=== PATIENT | female | born 1990 | race Caucasian/White ===

== ENCOUNTER 2019-01-07 09:37 | Outpatient (CLI) | payer MEDICAID ==
[2019-01-07 09:50] VITALS: BP 115/67
[2019-01-07 10:20] VITALS: BP 116/64
[2019-01-07 10:50] VITALS: BP 122/70
[2019-01-07 11:20] VITALS: BP 122/62
[2019-01-07 11:31] LABS: BILIRUBIN,URINE NEGATIVE (NEGATIVE); CLARITY,URINE CLEAR; COLOR,URINE YELLOW; GLUCOSE, URINE (UA) NEGATIVE (NEGATIVE); KETONES,URINE NEGATIVE (NEGATIVE); LEUKOCYTE ESTERASE ,URINE 1+ (NEGATIVE); NITRITE,URINE NEGATIVE (NEGATIVE); PH,URINE 7 (5-9); PROTEIN,URINE NEGATIVE (NEGATIVE); UROBILINOGEN,URINE NORMAL (NORMAL)
[2019-01-07 11:39] LABS: BACTERIA,URINE FEW /HPF
[2019-01-07 11:50] VITALS: BP 127/67
--- NOTE | 2019-01-08 09:49 | Physician Query-Final Dx ---
NATACHA MURO 01/08/19 0949: Clinic Account Progress/Dx Physician Query: Please give diagnosis Please include weeks gestation Date of Service Jan 07, 2019 at 09:37 RAMON SALVADOR DO 01/13/19 0704: Clinic Account Progress/Dx Physician Query: Please give diagnosis Intrauterine at 37 weeks 2. Pelvic Pain 3. Nausea DIAGNOSIS: Diagnosis Intrauterine at 37 weeks 2. Pelvic Pain 3. Nausea NATACHA MURO Jan 08, 2019 09:49 RAMON SALVADOR DO Jan 13, 2019 07:04
== END 2019-01-07 12:30 | disposition home or self-care (01) ==
LOC: WSo 09:37 → LDRP 09:38 → WSo 12:30
PROVIDERS: ATTEND Obstetrics & Gynecology
DX: O26.893 Other specified pregnancy related conditions, third trimester (principal); R10.2 Pelvic and perineal pain; R11.0 Nausea; Z3A.37 37 weeks gestation of pregnancy
CPT/HCPCS: 81000; 87088; 99213

== ENCOUNTER 2019-01-21 05:31 | Inpatient (IN) | payer MEDICAID ==
[~2019-01-21] VITALS: Ht 162.6 cm; Wt 103.3 kg
[2019-01-21] VITALS (58 sets, daily range): BP systolic 95–138; BP diastolic 53–91
--- NOTE | 2019-01-21 05:40 | NUR ---
SABRINA BATEMAN presented to unit via ambulation from home/ED, accompanied by friend, for INDUCTION. SABRINA BATEMAN weighed, gowned, voided, and to bed. EFHM and TOCO applied, VS taken. SABRINA BATEMAN oriented to bed controls, call light, TV, heat, and A/C controls.
[2019-01-21] MEDS ORDERED: MINERAL OIL CONCENTRATE 99.9% 15 ML UDC TOP PRN (06:00)
[2019-01-21] MEDS ORDERED: PREN-142 PO (06:09)
[2019-01-21 06:14] LABS: BASOPHILS % (AUTO) 0 % (0-10); EOSINOPHILS # (AUTO) 0.1 10^3/uL (0.0-0.3); EOSINOPHILS % (AUTO) 1 % (0-10); HEMATOCRIT 32 % (35-52); HEMOGLOBIN 10.5 G/DL (11.5-16.0); LYMPHOCYTES # (AUTO) 2.3 X 10^3 (1.0-4.0); LYMPHOCYTES % (AUTO) 26 % (12-44); MEAN CORPUSCULAR HEMOGLOBIN 27 PG (25-34); MEAN CORPUSCULAR HGB CONC 33 G/DL (32-36); MEAN CORPUSCULAR VOLUME 81 FL (80-99); MEAN PLATELET VOLUME 9.3 FL (7.4-10.4); MONOCYTES % (AUTO) 11 % (0-12); NEUTROPHILS # (AUTO) 5.7 X 10^3 (1.8-7.8); NEUTROPHILS % (AUTO) 62 % (42-75); PLATELET COUNT 307 10^3/uL (130-400); RED CELL DISTRIBUTION WIDTH 14.9 % (10.0-14.5); WHITE BLOOD COUNT 9.1 10^3/uL (4.3-11.0)
[2019-01-21] MEDS ORDERED: OXYTOCIN/NORMAL SALINE 500 ML IV ONE (07:26)
[2019-01-21] MEDS ORDERED: OXYTOCIN/NORMAL SALINE 500 ML IV SCH ×2 (07:27→21:26)
[2019-01-21] MEDS: D5 LR IV SOLUTION 1,000 ML IV SCH ×2 (07:53→15:56)
[2019-01-21] MEDS: CATHETER FLUSH 10 ML SYR IV SCH ×2 (08:12→14:51)
[2019-01-21] MEDS: BUTORPHANOL INJ 2 MG/ML (STADOL) VIAL IV PRN ×3 (12:18→20:22)
[2019-01-21] MEDS ORDERED: ONDANSETRON 4 MG/2 ML (SDV) Z0FRAN ONE (20:23)
[2019-01-21] MEDS ORDERED: LIDOCAINE/EPI 2% 1:200,00 (XYLOCAINE) 10 ML VIAL ONE (20:59)
[2019-01-21] MEDS ORDERED: NALOXONE 0.4 MG/ML 1 ML (NARCAN) VIAL ONE (21:03)
--- NOTE | 2019-01-21 21:23 | History & Physical-OB ---
OB - Chief Complaint & HPI Date/Time Date of Admission: Date of Admission: Jan 21, 2019 at 05:31 Date seen by a Provider: Jan 21, 2019 Time Seen by a Provider: 06:45 Chief Complaint/History OB-Reason for Admission/Chief: Induction of Labor Expected Date of Delivery: Jan 28, 2019 Gestational Age in Weeks: 39 Admission Nurse Assessment Rev: Yes Allergies and Home Medications Allergies Coded Allergies: No Known Drug Allergies (Unverified , 01/07/19) Home Medications Vit No.124/Iron/FA 1 Each Tablet, 1 EACH PO DAILY, (Reported) Patient Home Medication List Home Medication List Reviewed: Yes OB - History Hx of Present Care: Yes Ultrasounds: Normal mid trimester US Obstetrical Complications: None Medical Complications: None Information Induced Hypertension: No Maternal Gestational Diabetes: No Hemorrhage: No Delivery History Adverse Rxn to Tranfusion: No Patient Past Medical History None Social History/Family History HIV/AIDS: No Recent Infectious Disease Expo: No Alcohol Use: Denies Use Recreational Drug Use: No Immunizations Hepatitis A: No Hepatitis B: No OB - Admission Exam Physical Exam Vitals: Vital Signs 01/21/19 01/21/19 01/21/19 19:00 19:30 20:15 Temp 35.8 Pulse 72 Resp 18 B/P (MAP) 120/73 (89) Pulse Ox 100 O2 Delivery Room Air HEENT: NCAT Heart: Rhythm Normal Lungs: Clear Abdomen: Gravid Extremities: Normal Reflexes: Normal Cervical Dilatation: 2cm Effacement: 25% Station: Ballotable Membranes: Intact Heart Rate: 130's Accelerations: Accelerations Present Decelerations: No Decelerations Broke Worker Variability: Average (6-25) Contractions on Admission: None Solorzano Scoring Tool (Modified) Dilation (cm): 1-2cm (1) Effacement (%): 31-51% (1) Descent/Station: -3 (0) Cervix Consistency: Firm (0) Cervix Position: Posterior (0) Add 1 point for: Each previous vaginal delivery (1) Labs Laboratory Tests Test 01/21/19 06:00 Range/Units White Blood Count 9.1 4.3-11.0 10^3/uL Red Blood Count 3.93 L 4.35-5.85 10^6/uL Hemoglobin 10.5 L 11.5-16.0 G/DL Hematocrit 32 L 35-52 % Mean Corpuscular Volume 81 80-99 FL Mean Corpuscular Hemoglobin 27 25-34 PG Mean Corpuscular Hemoglobin Concent 33 32-36 G/DL Red Cell Distribution Width 14.9 H 10.0-14.5 % Platelet Count 307 130-400 10^3/uL Mean Platelet Volume 9.3 7.4-10.4 FL Neutrophils (%) (Auto) 62 42-75 % Lymphocytes (%) (Auto) 26 12-44 % Monocytes (%) (Auto) 11 0-12 % Eosinophils (%) (Auto) 1 0-10 % Basophils (%) (Auto) 0 0-10 % Neutrophils # (Auto) 5.7 1.8-7.8 X 10^3 Lymphocytes # (Auto) 2.3 1.0-4.0 X 10^3 Monocytes # (Auto) 1.0 0.0-1.0 X 10^3 Eosinophils # (Auto) 0.1 0.0-0.3 10^3/uL Basophils # (Auto) 0.0 0.0-0.1 10^3/uL OB - Assessment/Plan/Diagnosis Assessment Assessment: induction of labor Admission Dx Intrauterine at 39 weeks Admission Status: Inpatient Order (span 2 midnights) Reason for Inpatient Admission: Pitocin Induction of Labor Plan Induction Method: per Pitocin Protocol RAMON SALVADOR DO Jan 21, 2019 21:23
--- NOTE | 2019-01-21 21:26 | OB Labor & Delivery Record ---
Vag Delivery Note Vag Delivery Note Date of Delivery: 01/21/19 Preoperative Diagnosis: Francine Howe is a (28 /Para / ,Gestational Age (wks)39with [] Postoperative Diagnosis: Same Surgeon: RAMON SALVADOR Cadence Specialists: [None] Anesthesia: [None] Delivery Type: [Normal Spontaneous Vaginal Delivery] Findings: [] Viable [female] , apgars [], weight [] Lacerations:Superficial right labial, hemostatic, not repaired Intact placenta with 3 vessel cord. No nuchal cord, body cord or shoulder dystocia Cytotec 800 mcg placed for hemorrhage prophylaxis Estimated Blood Loss: [300] ml Complications: None Condition: Stable Description of Procedure: The patient is a 28 year old female who presented [for Pitocin Induction of Labor]. She was admitted and informed consent was obtained. She progressed to complete dilatation and began to push. She was then set up for delivery. The 's head was delivered atraumatically in the [MARCELLO] position. The shoulders and remainder of the 's body were then delivered without difficulty. Upon delivery, the head was held below the l evel of the perineum and the mouth and nares were bulb suctioned. The cord was doubly clamped and cut and the infant was handed off to the pediatric staff. Cord blood was obtained. An intact placenta with 3-vessel cord delivered via Jennifer and there was found to be minimal bleeding.~ Vigorous fundal massage was performed and the fundus was found to be firm. IV oxytocin was given. Examination of the vagina and perineum revealed a [superficial right labial laceration, hemostatic, not repaired]. Following the repair, sponge, instrument and needle counts were correct. Mom and baby were both in stable condition in the labor suite. Vitals - Labs Vital Signs - I&O Vital Signs Date Time Temp Pulse Resp B/P (MAP) Pulse Ox O2 Delivery O2 Flow Rate FiO2 01/21/19 20:15 72 18 120/73 (89) Room Air 01/21/19 20:00 71 18 121/71 (88) Room Air 01/21/19 19:45 87 18 118/73 (88) Room Air 01/21/19 19:30 35.8 76 18 114/67 (83) Room Air 01/21/19 19:15 82 18 123/74 (90) Room Air 01/21/19 19:00 74 18 123/74 (90) 100 Room Air 01/21/19 18:45 75 117/70 (86) Room Air 01/21/19 18:30 71 120/68 (85) Room Air 01/21/19 18:15 90 121/71 (88) Room Air 01/21/19 18:00 35.5 69 18 119/72 (88) Room Air 01/21/19 17:45 77 119/70 (86) Room Air 01/21/19 17:30 77 119/70 (86) Room Air 01/21/19 17:15 72 105/55 (72) Room Air 01/21/19 17:00 73 102/58 (73) Room Air 01/21/19 16:45 72 99/57 (71) Room Air 01/21/19 16:30 80 115/65 (82) Room Air 01/21/19 16:15 79 115/65 (82) Room Air 01/21/19 16:00 36.0 79 16 113/63 (80) 99 Room Air 01/21/19 15:45 77 102/61 (75) Room Air 01/21/19 15:30 77 108/59 (75) Room Air 01/21/19 15:15 70 95/55 (68) 01/21/19 15:00 81 128/68 (88) Room Air 01/21/19 14:45 81 107/66 (80) Room Air 01/21/19 14:30 75 104/64 (77) Room Air 01/21/19 14:15 80 105/62 (76) Room Air 01/21/19 14:00 36.4 70 16 107/64 (78) Room Air 01/21/19 13:45 84 111/57 (75) Room Air 01/21/19 13:30 81 100/57 (71) Room Air 01/21/19 13:15 84 106/57 (73) Room Air 01/21/19 13:00 72 104/56 (72) Room Air 01/21/19 12:45 86 104/63 (77) Room Air 01/21/19 12:30 86 106/66 (79) Room Air 01/21/19 12:15 85 117/69 (85) Room Air 01/21/19 12:00 35.9 86 18 120/84 (96) 99 Room Air 01/21/19 11:45 86 124/91 (102) Room Air 01/21/19 11:30 85 114/65 (81) Room Air 01/21/19 11:15 83 109/62 (78) Room Air 01/21/19 11:00 86 114/68 (83) 01/21/19 10:45 85 112/59 (76) Room Air 01/21/19 10:30 35.9 72 120/59 (79) Room Air 01/21/19 10:15 89 116/62 (80) Room Air 01/21/19 10:00 76 16 130/53 (78) Room Air 01/21/19 09:45 82 16 110/67 (81) Room Air 01/21/19 09:30 83 103/63 (76) Room Air 01/21/19 09:15 83 103/63 (76) Room Air 01/21/19 09:00 96 16 118/70 (86) Room Air 01/21/19 08:45 85 18 120/71 (87) Room Air 01/21/19 08:30 94 18 126/80 (95) 97 Room Air 01/21/19 08:15 102 18 130/62 (84) 97 Room Air 01/21/19 08:00 36.4 94 18 123/82 (96) 98 Room Air Labs Laboratory Tests 01/21/19 06:00: White Blood Count 9.1, Red Blood Count 3.93L, Hemoglobin 10.5L, Hematocrit 32L, Mean Corpuscular Volume 81, Mean Corpuscular Hemoglobin 27, Mean Corpuscular Hemoglobin Concent 33, Red Cell Distribution Width 14.9H, Platelet Count 307, Mean Platelet Volume 9.3, Neutrophils (%) (Auto) 62, Lymphocytes (%) (Auto) 26, Monocytes (%) (Auto) 11, Eosinophils (%) (Auto) 1, Basophils (%) (Auto) 0, Neutrophils # (Auto) 5.7, Lymphocytes # (Auto) 2.3, Monocytes # (Auto) 1.0, Eosinophils # (Auto) 0.1, Basophils # (Auto) 0.0 RAMON SALVADOR DO Jan 21, 2019 21:26
[2019-01-21] MEDS ORDERED: MEASLES,MUMPS,RUBELLA 1 EA INJ SQ ONE (21:30)
[2019-01-21] MEDS ORDERED: DIBUCAINE (NUPERCAINAL) 1% OINT 30 GM TOP PRN (21:30)
[2019-01-21] MEDS ORDERED: WITCH HAZEL(TUCKS) 40 EA JAR TOP PRN (21:30)
[2019-01-21] MEDS ORDERED: TETANUS,DIPTH,PERTUSS P/F (BOOSTRIX) 0.5 ML VIAL IM ONE (21:30)
[2019-01-21] MEDS ORDERED: BENZOCAINE/MENTHOL (DERMOPLAST) 56 ML CAN TP PRN (21:30)
[2019-01-21] MEDS ORDERED: CATHETER FLUSH 10 ML SYR IV SCH (22:00)
--- NOTE | 2019-01-21 22:25 | NUR ---
Pt assisted standby to bathroom postrecovery period, pericare pads changed, first void since delivery, Pt to wc and transferred to pp unit room 313. Oriented to call system and surroundings, denies needs. will cont to monitor.
[2019-01-21] MEDS: IBUPROFEN 800 MG (MOTRIN) TAB PO SCH (22:33)
[2019-01-21] MEDS ORDERED: ONDANSETRON 4 MG/2 ML (SDV) Z0FRAN IVP ONE (22:45)
[2019-01-22 00:46] VITALS: BP 105/65
[2019-01-22] MEDS: ACETAMINOPHEN 500 MG TAB (TYLENOL) PO SCH ×3 (03:07→17:33)
[2019-01-22 04:16] VITALS: BP 93/61
[2019-01-22] MEDS: IBUPROFEN 800 MG (MOTRIN) TAB PO SCH ×3 (04:16→21:08)
[2019-01-22 05:41] LABS: BASOPHILS % (AUTO) 0 % (0-10); EOSINOPHILS % (AUTO) 0 % (0-10); HEMATOCRIT 30 % (35-52); HEMOGLOBIN 9.9 G/DL (11.5-16.0); LYMPHOCYTES # (AUTO) 1.6 X 10^3 (1.0-4.0); LYMPHOCYTES % (AUTO) 12 % (12-44); MEAN CORPUSCULAR HEMOGLOBIN 27 PG (25-34); MEAN CORPUSCULAR HGB CONC 33 G/DL (32-36); MEAN CORPUSCULAR VOLUME 82 FL (80-99); MEAN PLATELET VOLUME 9.3 FL (7.4-10.4); MONOCYTES # (AUTO) 1.2 X 10^3 (0.0-1.0); MONOCYTES % (AUTO) 9 % (0-12); NEUTROPHILS # (AUTO) 10.7 X 10^3 (1.8-7.8); NEUTROPHILS % (AUTO) 79 % (42-75); PLATELET COUNT 274 10^3/uL (130-400); RED CELL DISTRIBUTION WIDTH 14.7 % (10.0-14.5); WHITE BLOOD COUNT 13.6 10^3/uL (4.3-11.0)
--- NOTE | 2019-01-22 05:55 | NUR ---
called unit, update given on bleeding tendencies, chest pain reports, arrival hgb and current, arrival platelets and current. Orders for US when dept staff arrives. Addendum: 01/22/19 at 0601 by CHARLY LEVI RN WRONG PT
--- NOTE | 2019-01-22 06:08 | Progress Note ---
Standard Progress Note Progress Notes/Assess & Plan Date Seen by a Provider: Jan 22, 2019 Time Seen by a Provider: 06:00 Progress/Assessment & Plan Subjective: Ms. Howe is PPD#1 from a . She states that her bleeding is "normal", pain is controlled. Objective: Vital signs are stable Heart: Regular rate and rhythm without appreciable murmur Lungs: Clear to auscultation bilaterally with good respiratory effort Abdomen: Good bowel sounds, slightly tender at fundus, fundus 6 cm below umbilicus Extremities: No cyanosis or clubbing, with minimal edema of lower extremities Assessment: PPD#1 Plan: Comfort care today with discharge likely for tomorrow if patient stays stable. Final Diagnosis Intrauterine at 39 weeks--delivered RAMON SALVADOR DO Jan 22, 2019 06:08
[2019-01-22] MEDS: DOCUSATE SODIUM 100 MG (COLACE) CAP PO SCH ×2 (10:35→21:08)
[2019-01-22] MEDS: PRENATAL VITAMIN 1 EA TAB PO SCH (10:36)
[2019-01-22 10:39] VITALS: BP 113/62
--- NOTE | 2019-01-22 11:46 | NUR ---
QUINCY/DAVID spoke with the patient ( mother), the baby's adoptive step mother, and father. The father was holding the baby in the room appropriately. The patient states that her and the adoptive step mother have a open and good relationship. The step mother reports that they have everything they need for baby. The patient and stepmother stated they have already started the adoption process through the court. The home study has to be completed in the next 6 months for the adoption to go through. Everyone included in the decision is in agreement as stated by the mother and father. The patient states that she plans to discharge tomorrow and is going home with the baby's adoptive step mother. No other needs at this time. Will continue to follow. Addendum: 01/22/19 at 1212 by LAURIE HERNANDEZ reviewed and approved
[2019-01-22 14:16] VITALS: BP 119/57
[2019-01-22 17:35] VITALS: BP_SYST 105; BP_SYST 119; BP_DIAS 57; BP_DIAS 65
--- NOTE | 2019-01-22 19:25 | NUR ---
REPORT RECEIVED AND CARES RESUMED BY THIS NURSE.
[2019-01-22 21:05] VITALS: BP 118/56
--- NOTE | 2019-01-22 21:05 | NUR ---
INITIAL SHIFT ASSESSMENT DONE. VSS. PT DENIES ANY NEEDS.
--- NOTE | 2019-01-22 23:00 | NUR ---
PT SITTING UP EATING MEAL BROUGHT IN BY FRIENDS. DENIES ANY NEEDS AT THIS TIME.
[2019-01-23 04:50] VITALS: BP 117/54
--- NOTE | 2019-01-23 04:50 | NUR ---
VSS. MOTRIN ADMINISTERED FOR CRAMPING. PT DENIES ANY FURTHER NEEDS.
[2019-01-23] MEDS: ACETAMINOPHEN 500 MG TAB (TYLENOL) PO SCH (04:55)
[2019-01-23] MEDS: IBUPROFEN 800 MG (MOTRIN) TAB PO SCH (04:55)
[2019-01-23 08:06] VITALS: BP 118/75
--- NOTE | 2019-01-23 08:08 | Discharge Summary ---
Diagnosis/Chief Complaint Date of Admission Jan 21, 2019 at 05:31 Date of Discharge January 23, 2019 Discharge Date: Jan 23, 2019 Discharge Time: 09:00 Admission Diagnosis Admission Diagnosis Intrauterine at 39 weeks Discharge Diagnosis Intrauterine at 39 weeks--delivered Reason Hospital Visit Pitocin Induction of Labor Discharge Summary Hospital Course Was the Problem List Reviewed?: Yes Hospital Course Ms. Howe was admitted for Pitocin Induction of Labor. I artificially ruptured her membranes. She progressed to complete and after a short course of pushing she delivered a healthy viable . Her vital signs remained stable throughout her hospitalization. The remainder of her hospitalization was unremarkable. On Day #2, she was quite stable. I discharged her to home with instructions, prescriptions and a follow up appointment. Labs Laboratory Tests 01/21/19 06:00: Red Blood Count 3.93L, Hemoglobin 10.5L, Hematocrit 32L, Red Cell Distribution Width 14.9H 01/22/19 05:25: Red Blood Count 3.67L, Hemoglobin 9.9L, Hematocrit 30L, Red Cell Distribution Width 14.7H, White Blood Count 13.6H, Neutrophils (%) (Auto) 79H, Neutrophils # (Auto) 10.7H, Monocytes # (Auto) 1.2H Procedures None. Discharge Physical Examination Allergies: Coded Allergies: No Known Drug Allergies (Unverified , 01/07/19) Vitals & I&Os Vital Signs Date Time Temp Pulse Resp B/P (MAP) Pulse Ox O2 Delivery O2 Flow Rate FiO2 01/22/19 17:35 36.6 69 18 105/65 (78) 97 Room Air General Appearance: Alert, Oriented X3, Cooperative HEENT: Atraumatic Respiratory: Clear to Auscultation Cardiovascular: Regular Rate, No Murmurs Abdominal: Normal Bowel Sounds Extremities: No Clubbing, No Cyanosis Skin: No Rashes Neuro: Normal Gait, Normal Speech Psych/Mental Status: Mental Status NL Discharge Home Medications Reviewed and agree with Discharge Medication list on patient's Discharge Instruction sheet Instructions to Patient/Family Please see electronic discharge instructions given to patient. Clinical Quality Measures DVT/VTE Risk/Contraindication: Risk Factor Score Per Nursin RFS Level Per Nursing on Admit: 1=Low/No VTE PPX RAMON SALVADOR DO Jan 23, 2019 08:08
--- NOTE | 2019-01-23 08:10 | NUR ---
REPORT TO ONCOMING SHIFT.
[2019-01-23] MEDS ORDERED: DOCU100C37 PO (08:12)
[2019-01-23] MEDS ORDERED: ACET-77 PO (08:12)
[2019-01-23] MEDS ORDERED: IBUP-1780 PO (08:12)
[2019-01-23] MEDS ORDERED: OXC5T PO (08:12)
[2019-01-23] MEDS: PRENATAL VITAMIN 1 EA TAB PO SCH (09:42)
[2019-01-23] MEDS: DOCUSATE SODIUM 100 MG (COLACE) CAP PO SCH (09:42)
--- NOTE | 2019-01-23 10:45 | NUR ---
Discharge instructions explained, signed and copy to patient. pt verbalized understanding of instructions and denied questions. prescriptions given and pt verbalized understanding of medications and denied questions.
--- NOTE | 2019-01-23 12:00 | NUR ---
Discharged to home. Ambulates self downstairs to private vehicle accompanied by staff.
== END 2019-01-23 12:00 | disposition home or self-care (01) | DRG 807 ==
LOC: LDRP 05:31
PROVIDERS: ADMIT Obstetrics & Gynecology; ATTEND Obstetrics & Gynecology
PROC: 10E0XZZ Delivery of Products of Conception, External Approach (ICD-10-PCS; principal; 2019-01-21)
PROC: 3E033VJ Introduction of Other Hormone into Peripheral Vein, Percutaneous Approach (ICD-10-PCS; 2019-01-21)
DX: O75.89 Other specified complications of labor and delivery (principal); O70.0 First degree perineal laceration during delivery; Z3A.39 39 weeks gestation of pregnancy; Z37.0 Single live birth
CPT/HCPCS: 36415; 85025; 86850; 86900; 86901